=== PATIENT | male | born 1960 | race Caucasian/White ===

== ENCOUNTER → 2018-05-11 | Outpatient (REF) | payer MEDICARE, OTHER ==
[2018-05-11 13:56] LABS: ALT/SGPT 41 U/L (12-78); AST/SGOT 22 U/L (7-37); CHOLESTEROL LEVEL 161 MG/DL (<200); CHOLESTEROL RISK RATIO 2.402 (<5); CPK CREATINE PHOSPHOKINASE 112 U/L (39-308); HDL CHOLESTEROL 67 MG/DL (>40); LDL CHOLESTEROL 81 MG/DL (<100); NON-HDL-C 94 MG/DL; TRIGLYCERIDES LEVEL 67 MG/DL (<150)
== END ==
LOC: M LABDRAW1 12:11
DX: E78.00 Pure hypercholesterolemia, unspecified (principal); I25.119 Atherosclerotic heart disease of native coronary artery with unspecified angina pectoris
CPT/HCPCS: 84460

== ENCOUNTER → 2018-08-29 | Outpatient (CLI) | payer MEDICARE, OTHER ==
[~2018-08-29] MED LIST: ASPI81TA85 PO; MULTCAP PO; VITA250L PO
--- NOTE | 2018-08-29 09:44 | REP ---
RIGHT FINGERS, FOUR VIEWS: HISTORY: Pain. There is a nondisplaced fracture of the tuft of the distal phalange of the fourth digit. There is no dislocation. The joint spaces are normal in appearance. IMPRESSION: Fracture of the fourth distal phalange. Electronically Signed by Driss Gaytan MD 08/29/2018 09:52 A
== END ==
LOC: M WUC 08:27
PROVIDERS: ATTEND Physician Assistant
DX: S62.664A Nondisplaced fracture of distal phalanx of right ring finger, initial encounter for closed fracture (principal); X58.XXXA Exposure to other specified factors, initial encounter; Y92.9 Unspecified place or not applicable

== ENCOUNTER → 2019-01-27 | Outpatient (CLI) | payer MEDICARE, BC ==
[2019-01-27 17:59] LABS: BASO # 0.1 10^3/uL (0.0-0.2); BASO % 1.5 % (0.0-1.0); EOS # 0.4 10^3/uL (0.0-0.50); EOS % 7.2 % (0.0-3.0); HEMATOCRIT 44.8 % (42.0-52.0); HEMOGLOBIN 14.8 g/dl (13.5-17.5); LYMPH # 1.8 10^3/uL (1.5-4.5); LYMPH % 33.1 % (24.0-44.0); MEAN CORPUSCULAR HEMOGLOBIN 31.8 pg (27.0-33.0); MEAN CORPUSCULAR VOLUME 96.1 fl (80.0-96.0); MONO # 0.6 10^3/uL (0.0-0.8); MONO % 10.6 % (0.0-5.0); NEUTROPHILS # 2.5 10^3/uL (1.8-7.7); NEUTROPHILS % 47.4 % (36.0-66.0); PLATELET COUNT, AUTOMATED 199 10^3/uL (150-450); RED BLOOD COUNT 4.66 10^6/uL (4.30-6.10); WHITE BLOOD COUNT 5.3 10^3/uL (4.0-10.0)
[2019-01-27 18:00] LABS: ALBUMIN 3.7 GM/DL (3.2-5.2); ALT/SGPT 38 U/L (12-78); BILIRUBIN,TOTAL 0.5 MG/DL (0.2-1.0); BLOOD UREA NITROGEN 12 MG/DL (7-18); CALCIUM LEVEL 9.2 MG/DL (8.5-10.1); CARBON DIOXIDE LEVEL 27 MEQ/L (21-32); CHLORIDE LEVEL 109 MEQ/L (98-107); CREATININE FOR GFR 1.16 MG/DL (0.70-1.30); GLOMERULAR FILTRATION RATE > 60.0 (>56); GLUCOSE, FASTING 83 MG/DL (70-100); LIPASE 96 U/L (73-393); POTASSIUM SERUM 4.4 MEQ/L (3.5-5.1); SODIUM LEVEL 143 MEQ/L (136-145); TOTAL PROTEIN 6.4 GM/DL (6.4-8.2)
== END ==
LOC: M WUC 10:40
PROVIDERS: ATTEND Physician Assistant
DX: R10.30 Lower abdominal pain, unspecified (principal); R19.7 Diarrhea, unspecified

== ENCOUNTER → 2019-05-29 | Outpatient (CLI) | payer MEDICARE, BC, OTHER ==
[2019-05-29 09:29] LABS: CHOLESTEROL RISK RATIO 2.403 (<5)
== END ==
LOC: M LAB 08:15
PROVIDERS: ATTEND Internal Medicine Cardiovascular Disease
DX: I25.119 Atherosclerotic heart disease of native coronary artery with unspecified angina pectoris (principal); E78.00 Pure hypercholesterolemia, unspecified; Z79.899 Other long term (current) drug therapy

== ENCOUNTER → 2019-05-29 | Outpatient (CLI) | payer MEDICARE, BC, OTHER ==
--- NOTE | 2019-05-29 10:16 | REP ---
CT CHEST WITHOUT IV CONTRAST: COMPARISON: 09/20/2015. CT chest performed in the axial plane with sagittal and coronal reconstruction images. There is mild fibroatelectatic change in posterior/inferior lower lobes bilaterally. No suspicious nodule is seen in either lung. No axillary or mediastinal adenopathy is seen. There are a few scattered subcentimeter mediastinal lymph nodes present. There is mild atherosclerotic calcification of the thoracic aorta without aneurysm. The heart is normal in size. There is no pleural or pericardial effusion. There are degenerative changes of the spine. There is a small hiatal hernia compatible with evidence of prior gastric surgery. Small hypodense nodule in the left lobe of the liver stable compared to the prior CT and may represent a small cyst. IMPRESSION: No suspicious abnormalities. Electronically Signed by Tello Langley MD 05/29/2019 07:52 P
== END ==
LOC: M RAD 08:12
PROVIDERS: ATTEND Internal Medicine Pulmonary Disease
DX: R91.8 Other nonspecific abnormal finding of lung field (principal); I25.119 Atherosclerotic heart disease of native coronary artery with unspecified angina pectoris; E78.00 Pure hypercholesterolemia, unspecified; Z79.899 Other long term (current) drug therapy

== ENCOUNTER → 2019-09-11 | Outpatient (CLI) | payer MEDICARE, BC, OTHER ==
[2019-09-11 10:11] LABS: BASO # 0.1 10^3/uL (0.0-0.2); BASO % 1.6 % (0.0-1.0); EOS # 0.1 10^3/uL (0.0-0.5); EOS % 2.7 % (0.0-3.0); HEMATOCRIT 47.9 % (42.0-52.0); HEMOGLOBIN 15.8 g/dl (13.5-17.5); LYMPH # 1.4 10^3/uL (1.5-5.0); LYMPH % 30.4 % (24.0-44.0); MEAN CORPUSCULAR HEMOGLOBIN 31.7 pg (27.0-33.0); MONO # 0.8 10^3/uL (0.0-0.8); MONO % 18.9 % (0.0-5.0); NEUTROPHILS % 45.9 % (36.0-66.0); PLATELET COUNT, AUTOMATED 154 10^3/uL (150-450); RED BLOOD COUNT 4.99 10^6/uL (4.30-6.10); WHITE BLOOD COUNT 4.4 10^3/uL (4.0-10.0)
[2019-09-11 10:40] LABS: ALBUMIN 3.9 GM/DL (3.2-5.2); ALT/SGPT 38 U/L (12-78); BILIRUBIN,TOTAL 0.5 MG/DL (0.2-1.0); BLOOD UREA NITROGEN 17 MG/DL (7-18); CALCIUM LEVEL 8.8 MG/DL (8.5-10.1); CARBON DIOXIDE LEVEL 28 MEQ/L (21-32); CHLORIDE LEVEL 107 MEQ/L (98-107); CREATININE FOR GFR 1.14 MG/DL (0.70-1.30); GLOMERULAR FILTRATION RATE > 60.0 (>56); GLUCOSE, FASTING 81 MG/DL (70-100); LIPASE 2114 U/L (73-393); SODIUM LEVEL 139 MEQ/L (136-145); TOTAL PROTEIN 7.4 GM/DL (6.4-8.2)
== END ==
LOC: M WUC 09:04
PROVIDERS: ATTEND Physician Assistant
DX: R10.9 Unspecified abdominal pain (principal)

== ENCOUNTER → 2020-03-20 | Outpatient (CLI) | payer MEDICARE, OTHER, BC ==
[~2020-03-20] MED LIST changes: -ASPI81TA85 PO; +ASPI81TA86 PO
[2020-03-20 19:57] LABS: BASO # 0.1 10^3/uL (0.0-0.2); BASO % 1.3 % (0.0-1.0); EOS # 0.3 10^3/uL (0.0-0.5); EOS % 4.8 % (0.0-3.0); HEMATOCRIT 46.1 % (42.0-52.0); HEMOGLOBIN 14.7 g/dl (13.5-17.5); LYMPH # 2.3 10^3/uL (1.5-5.0); LYMPH % 32.3 % (24.0-44.0); MEAN CORPUSCULAR HEMOGLOBIN 30.6 pg (27.0-33.0); MEAN CORPUSCULAR HGB CONC 31.9 g/dl (32.0-36.5); MONO # 0.6 10^3/uL (0.0-0.8); MONO % 9.1 % (0.0-5.0); NEUTROPHILS # 3.7 10^3/uL (1.5-8.5); NEUTROPHILS % 52.2 % (36.0-66.0); PLATELET COUNT, AUTOMATED 192 10^3/uL (150-450); WHITE BLOOD COUNT 7.1 10^3/uL (4.0-10.0)
[2020-03-20 20:11] LABS: ALBUMIN 4.1 GM/DL (3.2-5.2); BILIRUBIN,TOTAL 0.4 MG/DL (0.2-1.0); CALCIUM LEVEL 9.4 MG/DL (8.5-10.1); CREATININE FOR GFR 1.32 MG/DL (0.70-1.30); GLOMERULAR FILTRATION RATE 59.3 (>56); POTASSIUM SERUM 4.7 MEQ/L (3.5-5.1); TOTAL PROTEIN 7.1 GM/DL (6.4-8.2)
== END ==
LOC: M WUC 15:14
PROVIDERS: ATTEND Physician Assistant
DX: R10.11 Right upper quadrant pain (principal)

== ENCOUNTER → 2020-03-24 | Outpatient (CLI) | payer MEDICARE, BC, OTHER ==
--- NOTE | 2020-03-27 12:15 | REP ---
LIMITED ABDOMINAL ULTRASOUND CLINICAL: Right upper quadrant pain. TECHNIQUE: Real-time jones scale and color evaluation using curved array transducer. FINDINGS: Evaluation is limited by overlying bowel gas. Visualized portions of the liver are normal. The pancreas is incompletely evaluated. The gallbladder is normal and without gallstones, wall thickening, or pericholecystic fluid. No biliary ductal dilatation is appreciated, and the common bile duct measures 4.7 mm diameter. The right kidney is normal in reniform shape without hydronephrosis and measures 10.2 x 5.2 x 4.8 cm. No ascites in the visualized right upper quadrant. IMPRESSION: Normal right upper quadrant ultrasound examination. MTDD
== END ==
LOC: M RAD 07:18
PROVIDERS: ATTEND Physician Assistant
DX: R10.11 Right upper quadrant pain (principal)

== ENCOUNTER → 2020-07-27 | Outpatient (CLI) | payer MEDICARE, BC, OTHER ==
[2020-07-27 13:17] LABS: CHOLESTEROL RISK RATIO 2.49 (<5)
== END ==
LOC: M WUC 09:07
PROVIDERS: ATTEND Internal Medicine Cardiovascular Disease
DX: E78.49 Other hyperlipidemia (principal); Z79.899 Other long term (current) drug therapy

== ENCOUNTER 2021-03-16 12:50 | Emergency (ER) | payer MEDICARE, BC, OTHER ==
[~2021-03-16] VITALS: Ht 172.7 cm; Wt 104.0 kg
[2021-03-16] MEDS ORDERED: ATOR1TAB21 (12:58)
[2021-03-16] MEDS ORDERED: CLOP75TA2 (12:58)
--- NOTE | 2021-03-16 13:15 | REP ---
INDICATION: CHEST PAIN COMPARISON: 09/20/2015 TECHNIQUE: Portable AP view of the chest FINDINGS: The mediastinum and cardiac silhouette are stable and within normal limits for portable technique. The lung choudhary are clear without acute consolidation, effusion, or pneumothorax. Skeletal structures are intact. IMPRESSION: No acute cardiopulmonary process appreciated. <Electronically signed by Jose Carlos Razo > 03/16/21 [id number]
[2021-03-16] MEDS ORDERED: ISOVUE-370 76% 100ML VIAL As Ordered ONE (14:34)
[2021-03-16 14:38] LABS: BASO # 0.1 10^3/uL (0.0-0.2); BASO % 1.6 % (0.0-1.0); EOS # 0.4 10^3/uL (0.0-0.5); EOS % 7.2 % (0.0-3.0); HEMATOCRIT 42.9 % (42.0-52.0); HEMOGLOBIN 14.1 g/dl (13.5-17.5); LYMPH # 1.7 10^3/uL (1.5-5.0); LYMPH % 29.9 % (24.0-44.0); MEAN CORPUSCULAR HEMOGLOBIN 30.3 pg (27.0-33.0); MEAN CORPUSCULAR HGB CONC 32.9 g/dl (32.0-36.5); MEAN CORPUSCULAR VOLUME 92.1 fl (80.0-96.0); MONO # 0.6 10^3/uL (0.0-0.8); MONO % 9.9 % (2.0-8.0); NEUTROPHILS # 2.9 10^3/uL (1.5-8.5); NEUTROPHILS % 51.2 % (36.0-66.0); PLATELET COUNT, AUTOMATED 208 10^3/uL (150-450); RED BLOOD COUNT 4.66 10^6/uL (4.30-6.10); WHITE BLOOD COUNT 5.6 10^3/uL (4.0-10.0)
--- NOTE | 2021-03-16 14:54 | REP ---
INDICATION: SOB; chest pressure; r/o PE COMPARISON: 05/29/2019 TECHNIQUE: Axial contrast enhanced images from the thoracic inlet to the upper abdomen using pulmonary embolus technique with multiplanar re-formations. 75 ml Isovue 370 intravenous contrast material administered without complication. This CT examination was performed using the following dose reduction techniques: Automated exposure control, adjustment of mA and/or kv according to the patient's size, and use of iterative reconstruction technique. FINDINGS: Satisfactory enhancement of the pulmonary vasculature is achieved but evaluation is limited by respiratory motion. No obvious pulmonary embolus identified. Stable cardiomegaly and moderate atherosclerotic changes to the coronary arteries noted. No pericardial effusion. Thoracic aorta without aneurysm or dissection. The bilateral lung choudhayr demonstrate mild chronic changes. No acute consolidation or effusion. No pneumothorax. 4 mm noncalcified nodule in the deep right posterior sulcus (series 402; image 60) remains stable. Musculoskeletal structures demonstrate degenerative changes to the thoracic spine without acute process. IMPRESSION: No evidence for pulmonary embolus. No acute mediastinal or pleural parenchymal process. <Electronically signed by Jose Carlos Razo > 03/16/21 [id number]
[2021-03-16 15:09] LABS: ALBUMIN 3.5 GM/DL (3.2-5.2); ALT/SGPT 37 U/L (12-78); BILIRUBIN,DIRECT < 0.1 MG/DL (0.0-0.2); BILIRUBIN,TOTAL 0.3 MG/DL (0.2-1.0); LIPASE 213 U/L (73-393); NT-PRO BNP 28 PG/ML (<125); THYROID STIMULATING HORMONE 0.727 uIU/ML (0.358-3.740); TOTAL PROTEIN 6.4 GM/DL (6.4-8.2)
[2021-03-16 17:40] VITALS: BP 157/101
--- NOTE | 2021-03-17 17:34 | ECGEPIP ---
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
--- NOTE | 2021-03-17 17:35 | ECGEPIP ---
[facility] - ED Test Date: 2021-03-16 Pat Name: TRACY TAVERA Department: Room: - Gender: Male Vocational Trainer: GAMALIEL : 1960 Requested By: ANI GRIFFIN Order Number: [id number] Reading MD: Jennifer Gutierrez Measurements Intervals [place] [facility] Rate: 69 P: 47 [place]: 170 QRS: 10 QRSD: 74 T: 13 QT: 366 QTc: 392 Interpretive Statements Normal sinus rhythm NSTTW abnormalities similar 03/16/21 Electronically Signed on 03-17-2021 17:35:08 EDT by Jennifer Gutierrez
== END 2021-03-16 17:46 | disposition home or self-care (01) ==
LOC: M ED 12:50
DX: R07.89 Other chest pain (principal); R91.8 Other nonspecific abnormal finding of lung field; I25.2 Old myocardial infarction; Z86.73 Personal history of transient ischemic attack (TIA), and cerebral infarction without residual deficits; Z95.5 Presence of coronary angioplasty implant and graft; Z79.82 Long term (current) use of aspirin; Z79.899 Other long term (current) drug therapy
CPT/HCPCS: 36415; 71045; 71275; 80047; 80076; 83690; 83880; 84443; 84484; 85025; 93005; 93041; 94760; 99285; Q9967

== ENCOUNTER → 2021-06-18 | Outpatient (CLI) | payer MEDICARE, BC, OTHER ==
[~2021-06-18] MED LIST changes: +ASPI81TA26 PO; +ATOR1TAB21 PO; +CETI-24 PO; +CLOP75TA2 PO; +GLUC1CAP10 PO; +MAGN400C PO; +OYST1TAB PO; +VITMTA PO
== END ==
LOC: M LABSMTC 09:43
PROVIDERS: ATTEND Anesthesiology
DX: Z01.818 Encounter for other preprocedural examination (principal); Z11.52 Encounter for screening for COVID-19

== ENCOUNTER 2021-06-23 07:57 | Day surgery (SDC) | payer MEDICARE, BC, OTHER ==
[~2021-06-23] VITALS: Ht 172.7 cm; Wt 101.2 kg
[~2021-06-23 07:57] MED LIST changes: +LIDOCAINE 2% 100MG/5ML SDV (FOR ANES.) As Ordered ONE; +NS 1,000 ML IV ONE; +propofoL 200 MG/20 ML VIAL As Ordered ONE
[2021-06-23 09:53] VITALS: BP 122/77
== END 2021-06-23 10:04 | disposition home or self-care (01) ==
LOC: M OPP 07:57
PROVIDERS: ATTEND Surgery
DX: Z12.11 Encounter for screening for malignant neoplasm of colon (principal); K57.30 Diverticulosis of large intestine without perforation or abscess without bleeding; K64.8 Other hemorrhoids; K44.9 Diaphragmatic hernia without obstruction or gangrene; Z98.84 Bariatric surgery status; R10.13 Epigastric pain; R11.10 Vomiting, unspecified; G47.33 Obstructive sleep apnea (adult) (pediatric); I25.2 Old myocardial infarction; Z79.82 Long term (current) use of aspirin; Z79.899 Other long term (current) drug therapy; Z87.891 Personal history of nicotine dependence; Z95.5 Presence of coronary angioplasty implant and graft
CPT/HCPCS: 43235; G0121

== ENCOUNTER → 2021-08-03 | Outpatient (CLI) | payer MEDICARE, BC, OTHER ==
[~2021-08-03] MED LIST changes: -LIDOCAINE 2% 100MG/5ML SDV (FOR ANES.) As Ordered ONE; -NS 1,000 ML IV ONE; -propofoL 200 MG/20 ML VIAL As Ordered ONE
[2021-08-03 10:04] LABS: CHOLESTEROL RISK RATIO 2.881 (<5)
== END ==
LOC: M LAB 09:07
PROVIDERS: ATTEND Internal Medicine Cardiovascular Disease
DX: Z98.61 Coronary angioplasty status (principal); I25.10 Atherosclerotic heart disease of native coronary artery without angina pectoris

== ENCOUNTER → 2022-06-21 | Outpatient (CLI) | payer MEDICARE, BC, OTHER ==
[~2022-06-21] MED LIST changes: +METHACHOLINE KIT INH ONE
== END ==
LOC: M CARPUL 09:46
PROVIDERS: ATTEND Internal Medicine Pulmonary Disease
DX: R06.02 Shortness of breath (principal)
CPT/HCPCS: 94070; 95070; J7674

== ENCOUNTER → 2022-08-11 | Outpatient (CLI) | payer MEDICARE, BC, OTHER ==
[~2022-08-11] MED LIST changes: -METHACHOLINE KIT INH ONE
[2022-08-11 12:06] LABS: CHOLESTEROL RISK RATIO 2.75 (<5); LDL CHOLESTEROL 68.2 MG/DL (<100)
== END ==
LOC: M WUC 09:37
PROVIDERS: ATTEND Internal Medicine Cardiovascular Disease
DX: I25.119 Atherosclerotic heart disease of native coronary artery with unspecified angina pectoris (principal)

== ENCOUNTER → 2022-08-22 | Outpatient (CLI) | payer MEDICARE, BC, OTHER | LOC: M RAD 10:23 | PROVIDERS: ATTEND Internal Medicine Pulmonary Disease | DX: Z87.891 Personal history of nicotine dependence (principal) ==

== ENCOUNTER → 2022-08-25 | Outpatient (CLI) | payer MEDICARE, BC, OTHER ==
[2022-08-25 10:05] LABS: BASO # 0.1 10^3/uL (0.0-0.2); BASO % 1.9 % (0.0-1.0); EOS # 0.4 10^3/uL (0.0-0.5); EOS % 6.7 % (0.0-3.0); HEMATOCRIT 43.1 % (42.0-52.0); HEMOGLOBIN 14.1 g/dl (13.5-17.5); LYMPH # 2.2 10^3/uL (1.5-5.0); LYMPH % 38.6 % (24.0-44.0); MEAN CORPUSCULAR HEMOGLOBIN 30.9 pg (27.0-33.0); MEAN CORPUSCULAR HGB CONC 32.7 g/dl (32.0-36.5); MEAN CORPUSCULAR VOLUME 94.5 fl (80.0-96.0); MONO # 0.5 10^3/uL (0.0-0.8); MONO % 8.5 % (2.0-8.0); NEUTROPHILS # 2.5 10^3/uL (1.5-8.5); PLATELET COUNT, AUTOMATED 160 10^3/uL (150-450); RED BLOOD COUNT 4.56 10^6/uL (4.30-6.10); WHITE BLOOD COUNT 5.8 10^3/uL (4.0-10.0)
[2022-08-25 10:23] LABS: BLOOD UREA NITROGEN 16 MG/DL (9-23); CALCIUM LEVEL 9.3 MG/DL (8.3-10.6); CARBON DIOXIDE LEVEL 28 MMOL/L (20-31); CHLORIDE LEVEL 105 MMOL/L (98-107); CREATININE FOR GFR 1.01 MG/DL (0.70-1.30); GLOMERULAR FILTRATION RATE > 60.0 (>49); GLUCOSE, FASTING 115 MG/DL (74-106); POTASSIUM SERUM 4.2 MMOL/L (3.5-5.1); SODIUM LEVEL 139 MMOL/L (136-145)
== END ==
LOC: M WUC 08:33
PROVIDERS: ATTEND Internal Medicine Cardiovascular Disease
DX: I21.4 Non-ST elevation (NSTEMI) myocardial infarction (principal); I10 Essential (primary) hypertension; I20.0 Unstable angina

== ENCOUNTER → 2022-12-19 | Outpatient (CLI) | payer MEDICARE, BC, OTHER | LOC: M WUC 08:20 | PROVIDERS: ATTEND Physician Assistant | DX: S20.211A Contusion of right front wall of thorax, initial encounter (principal); W18.30XA Fall on same level, unspecified, initial encounter; Y92.009 Unspecified place in unspecified non-institutional (private) residence as the place of occurrence of the external cause ==

== ENCOUNTER → 2023-03-27 | Outpatient (REF) | payer MEDICARE, BC, OTHER | LOC: M LAB REF 16:22 | PROVIDERS: ATTEND Student in an Organized Health Care Education/Training Program | DX: R30.0 Dysuria (principal) ==

== ENCOUNTER → 2023-10-06 | Outpatient (CLI) | payer MEDICARE, BC | LOC: M RAD 07:31 | PROVIDERS: ATTEND Internal Medicine Pulmonary Disease | DX: Z87.891 Personal history of nicotine dependence (principal) ==

== ENCOUNTER → 2024-05-06 | Outpatient (REF) | payer MEDICARE, BC | LOC: M LAB REF 19:52 | PROVIDERS: ATTEND Student in an Organized Health Care Education/Training Program | DX: J06.9 Acute upper respiratory infection, unspecified (principal) ==

== ENCOUNTER → 2024-05-07 | Outpatient (CLI) | payer MEDICARE, BC | LOC: M WUC 10:58 | PROVIDERS: ATTEND Student in an Organized Health Care Education/Training Program | DX: J06.9 Acute upper respiratory infection, unspecified (principal) ==

== ENCOUNTER → 2024-05-16 | Outpatient (REF) | payer MEDICARE, BC | LOC: M LAB REF 12:55 | PROVIDERS: ATTEND Internal Medicine | DX: Z20.828 Contact with and (suspected) exposure to other viral communicable diseases (principal) ==

== ENCOUNTER → 2025-01-31 | Outpatient (CLI) | payer MEDICARE, BC | LOC: M RAD 10:37 | PROVIDERS: ATTEND Internal Medicine | DX: R10.9 Unspecified abdominal pain (principal) ==

== ENCOUNTER → 2025-04-03 | Outpatient (CLI) | payer MEDICARE, BC | LOC: M WUC 11:43 | PROVIDERS: ATTEND Student in an Organized Health Care Education/Training Program | DX: J20.9 Acute bronchitis, unspecified (principal) ==

== ENCOUNTER → 2025-04-27 | Outpatient (CLI) | payer MEDICARE, BC | LOC: M RAD 14:03 | PROVIDERS: ATTEND Student in an Organized Health Care Education/Training Program | DX: J20.9 Acute bronchitis, unspecified (principal) ==

== ENCOUNTER → 2025-05-16 | Outpatient (REF) | payer MEDICARE, OTHER | LOC: M LAB REF 11:44 | PROVIDERS: ATTEND Internal Medicine | DX: R05.1 Acute cough (principal); I25.2 Old myocardial infarction ==

== ENCOUNTER → 2025-05-27 | Outpatient (CLI) | payer MEDICARE, BC | LOC: M PLAIMG 07:48 | PROVIDERS: ATTEND Internal Medicine | DX: R05.3 Chronic cough (principal); R91.1 Solitary pulmonary nodule; K44.9 Diaphragmatic hernia without obstruction or gangrene; I25.10 Atherosclerotic heart disease of native coronary artery without angina pectoris; I70.0 Atherosclerosis of aorta ==